=== PATIENT | male | born 1970 | race Two or more races ===

== ENCOUNTER 2019-04-13 12:01 | Emergency (ER) | payer MEDICAID ==
[~2019-04-13] VITALS: Ht 167.6 cm; Wt 78.0 kg
--- NOTE | 2019-04-13 13:17 | NUR ---
pt self presents to ed bed 19 c/o l knee pain and swelling that started 2 days ago. denies any recent trauma. 9/10 pain worst when bending. hypertensive lpta. awaiting md godinez.
--- NOTE | 2019-04-13 13:55 | NUR ---
larissa pacheco at bedside for eval.
[2019-04-13] MEDS ORDERED: KETOROLAC TROMETHAMINE INJ 30 MG/ML VIAL IV ONE (14:00)
--- NOTE | 2019-04-13 14:00 | NUR ---
[facility] at bedside for blood draw.
[2019-04-13] MEDS ORDERED: KETOROLAC TROMETHAMINE INJ 30 MG/ML VIAL ONE (14:05)
[2019-04-13 14:08] LABS: BASOPHILS # (AUTO) 0.1 /CMM (0.0-0.2); BASOPHILS % (AUTO) 0.7 % (0.0-2.0); EOSINOPHILS % (AUTO) 2.2 % (0.0-6.0); HEMATOCRIT 45 % (39-51); HEMOGLOBIN 15.3 g/dL (13.5-17.5); LYMPHOCYTES # (AUTO) 2.9 /CMM (0.8-4.8); LYMPHOCYTES % (AUTO) 27.1 % (20.0-44.0); MEAN CORPUSCULAR HGB CONC 34 g/dl (31.0-36.0); MEAN CORPUSCULAR VOLUME 99 fL (80-96); MONOCYTES # (AUTO) 0.9 /CMM (0.1-1.30); MONOCYTES % (AUTO) 8.1 % (2.0-12.0); NEUTROPHILS # (AUTO) 6.6 /CMM (1.8-8.9); NEUTROPHILS % (AUTO) 61.9 % (43.0-81.0); PLATELET COUNT (AUTO) 323 /CMM (150-450); RED BLOOD CELL COUNT(AUTO) 4.57 MIL/uL (4.5-6.0); WHITE BLOOD COUNT (AUTO) 10.7 K/uL (4.3-11.0)
[2019-04-13 14:16] LABS: CALCIUM, SERUM 9.6 mg/dL (8.5-10.1); CREATININE 0.9 mg/dL (0.6-1.3); POTASSIUM 3.7 mmol/L (3.5-5.1)
[2019-04-13 14:22] LABS: ALBUMIN 3.9 g/dL (3.4-5.0); BILIRUBIN,DIRECT 0.1 mg/dL (0.0-0.2); BILIRUBIN,TOTAL 0.7 mg/dL (0.2-1.0); TOTAL PROTEIN, SERUM 8.3 g/dL (6.4-8.2)
[2019-04-13] MEDS ORDERED: LIDOCAINE HCL/MPF 1% 30 ML VIAL IJ ONE (15:48)
[2019-04-13] MEDS ORDERED: LIDOCAINE 2% 20 ML MDV TP ONE (16:00)
--- NOTE | 2019-04-13 17:48 | NUR ---
RN sup called, waiting for bed assignment
--- NOTE | 2019-04-13 18:00 | NUR ---
ARNOLDO SUP GAVE [id number]
--- NOTE | 2019-04-13 18:41 | NUR ---
report given to beni mazariegos for chapo.
--- NOTE | 2019-04-13 19:13 | NUR ---
ORTHO PAGED FOR CONSULT, AWAITING CALL FROM AGNIESZKA KAMARA
--- NOTE | 2019-04-13 19:34 | NUR ---
IV removed. Catheter intact and site benign. Pressure and 4x4 applied to site. No bleeding noted.Patient discharged to home in stable condition. Written and verbal after care instructions given. Patient verbalizes understanding of instruction.
[2019-04-13 19:36] VITALS: BP 142/81
== END 2019-04-13 19:37 | disposition home or self-care (01) ==
LOC: ER 12:05 → MED 18:30 → UNDOADMIN 18:30
DX: M25.462 Effusion, left knee (principal)
CPT/HCPCS: 20610; 36415; 73564; 80048; 80076; 82945; 85025; 85652; 86140; 87070; 89051; 89060; 96374; 99284; A6403; J1885; J3490